=== PATIENT | male | born 2005 | race African-American/Black ===

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

== ENCOUNTER 2023-04-06 12:17 | Emergency (ER) | payer OTHER ==
[2023-04-06 12:49] VITALS: TEMP 98.4; BMI 26.6
[2023-04-06] MEDS ORDERED: SODIUM CHLORIDE 1,000 ML IVPB ONE (13:16)
[2023-04-06] MEDS ORDERED: levETIRAcetam 500 MG/5 ML INJECTION VIAL IVPB ONE (13:43)
[2023-04-06 13:44] LABS: BASO % 0.6 % (0-2.0); EOS % 3.3 % (0-4.5); HEMATOCRIT 45.3 % (35.4-49); HEMOGLOBIN 15.5 GM/dL (11.7-16.9); MCH 31.9 pg (25.7-33.7); MCHC 34.1 g/dl (32.0-35.9); MEAN CELL VOLUME 93.5 fl (80-96); MEAN PLT VOLUME 8.8 fl (7.5-11.1); MONO % 14.6 % (3.8-10.2); NEUT % 57.5 % (42.8-82.8); PLATELET COUNT 308 10^3/uL (134-434); RBC 4.85 M/mm3 (4.00-5.60); RDW 13.3 % (11.9-15.9); WHITE BLOOD COUNT 5.5 K/mm3 (4.0-10.0)
[2023-04-06 13:56] LABS: INR 1.21 (0.83-1.09)
[2023-04-06 13:59] LABS: ACTIVATED PTT 29.9 SECONDS (25.2-36.5)
[2023-04-06 14:00] LABS: URINE APPEARANCE CLEAR; URINE BILIRUBIN NEGATIVE (NEGATIVE); URINE COLOR YELLOW; URINE GLUCOSE (UA) NEGATIVE (NEGATIVE); URINE KETONE NEGATIVE (NEGATIVE); URINE LEUK ESTERASE NEGATIVE (NEGATIVE); URINE NITRITE NEGATIVE (NEGATIVE); URINE PROTEIN NEGATIVE (NEGATIVE)
[2023-04-06 14:01] LABS: POTASSIUM 3.6 mmol/L (3.5-5.1)
[2023-04-06 14:04] LABS: ALBUMIN 3.7 g/dl (3.4-5.0); BLOOD UREA NITROGEN 12.5 mg/dL (7-18); CALCIUM 9.2 mg/dL (8.5-10.1)
[2023-04-06 14:07] LABS: CREATININE 0.9 mg/dL (0.55-1.3)
[2023-04-06 14:09] LABS: BILIRUBIN,TOTAL 0.5 mg/dL (0.2-1); TOT PROT 7.3 g/dl (6.4-8.2)
[2023-04-06 14:21] LABS: URINE BARBITURATES NEGATIVE (NEGATIVE)
[2023-04-06] MEDS ORDERED: ACETAMINOPHEN 325 MG TABLET (FP) PO ONE (14:21)
[2023-04-06] MEDS ORDERED: ACETAMINOPHEN 325 MG TABLET (FP) ONE (14:21)
[2023-04-06 14:22] LABS: COCAINE, UR NEGATIVE (NEGATIVE); METHADONE, UR NEGATIVE (NEGATIVE); PHENCYCLIDINE,URINE NEGATIVE (NEGATIVE); URINE AMPHETAMINES NEGATIVE (NEGATIVE); URINE BENZODIAZEPINES NEGATIVE (NEGATIVE)
[2023-04-06 14:23] LABS: OPIATES, URI NEGATIVE (NEGATIVE)
[2023-04-06 16:43] VITALS: BP 134/70; PULSE 70; RESP 18
== END 2023-04-06 16:43 | disposition home or self-care (01) ==
LOC: JER 12:17
PROC: 3E033NZ Introduction of Analgesics, Hypnotics, Sedatives into Peripheral Vein, Percutaneous Approach (ICD-10-PCS; principal; 2023-04-06)
PROC: 3E0337Z Introduction of Electrolytic and Water Balance Substance into Peripheral Vein, Percutaneous Approach (ICD-10-PCS; 2023-04-06)
DX: G40.909 Epilepsy, unspecified, not intractable, without status epilepticus (principal)
CPT/HCPCS: 36415; 70450-TC; 80053; 80177; 80307; 81003; 82962; 85025; 85610; 85730; 93005; 93010; 99285-25

== ENCOUNTER 2024-02-27 06:11 | Emergency (ER) | payer OTHER ==
[2024-02-27 06:25] VITALS: BP 113/64; PULSE 57; RESP 20; TEMP 98.1; BMI 20.5
[2024-02-27 09:39] LABS: BASO % 0.7 % (0-2.0); HEMATOCRIT 48.8 % (35.4-49); HEMOGLOBIN 16.7 GM/dL (11.7-16.9); MCH 32.2 pg (25.7-33.7); MCHC 34.2 g/dl (32.0-35.9); MEAN CELL VOLUME 94.2 fl (80-96); MEAN PLT VOLUME 9.2 fl (7.5-11.1); MONO % 16.9 % (3.8-10.2); NEUT % 33.4 % (42.8-82.8); PLATELET COUNT 314 10^3/uL (134-434); RBC 5.18 M/mm3 (4.00-5.60); RDW 14.2 % (11.9-15.9); WHITE BLOOD COUNT 4.7 K/mm3 (4.0-10.0)
[2024-02-27 09:55] LABS: POTASSIUM 4.5 mmol/L (3.5-5.1)
[2024-02-27 09:57] LABS: CALCIUM 9.7 mg/dL (8.5-10.1)
[2024-02-27 09:58] LABS: ALBUMIN 4.3 g/dl (3.4-5.0); BLOOD UREA NITROGEN 11.8 mg/dL (7-18)
[2024-02-27 10:03] LABS: TOT PROT 8.1 g/dl (6.4-8.2)
[2024-02-27 10:15] LABS: INR 1.16 (0.83-1.09); PROTHROMBIN TIME (PATIENT) 13.3 SEC (9.7-13.0)
[2024-02-27 10:18] LABS: ACTIVATED PTT 36.2 SECONDS (25.2-36.5)
== END 2024-02-27 10:10 | disposition short-term general hospital (02) ==
LOC: JER 06:11
DX: M86.9 Osteomyelitis, unspecified (principal)
CPT/HCPCS: 0241U-QW; 36415; 73630-TC-RT-FY; 80053; 85025; 85610; 85730; 99285-25